=== PATIENT | female | born 1995 | race Caucasian/White ===

== ENCOUNTER 2016-12-17 19:58 | Emergency (ER) | payer SELFPAY ==
[~2016-12-17] VITALS: Ht 160 cm; Wt 63.2 kg
[2016-12-17 21:53] LABS: EOSINOPHIL (%) 1.3 % (0-5); EOSINOPHIL COUNT 0.1 K/uL (0-0.3); HEMATOCRIT 36.9 % (36.0-46.0); IMMATURE GRANULOCYTE (%) 0.1 % (0.0-0.7); IMMATURE GRANULOCYTE COUNT 0.1 K/uL; LYMPHOCYTE COUNT 3.1 K/uL (1.0-2.8); MCH 31.5 PG (29.0-34.0); MCHC 33.9 G/DL (30.0-36.0); MCV 92.9 FL (83-99); MEAN PLAT.VOLUME 10.5 uM^3 (9.5-12.4); MONOCYTE (%) 5.3 % (3-12); MONOCYTE COUNT 0.4 K/uL (0-0.8); NEUTROPHIL (%) 52.9 % (45-76); NEUTROPHIL COUNT 4.1 K/uL (1.8-6.4); PLATELET COUNT 249 K/uL (156-360); RBC DIS.WIDTH-CV 12.6 % (11.8-14.6); RBC DIS.WIDTH-SD 41.3 % (39-53); RED BLOOD COUNT 3.97 M/uL (3.80-5.20); WHITE BLOOD COUNT 7.7 K/uL (4.1-10.2)
[2016-12-17 22:03] LABS: CHLORIDE 108 mEq/L (99-109); POTASSIUM 3.5 mEq/L (3.7-5.4); SODIUM 140 mEq/L (136-147)
[2016-12-17 22:04] LABS: GLUCOSE 84 mg/dL (70-99)
[2016-12-17 22:06] LABS: ANION GAP 12 MEQ/L (2-14)
[2016-12-17 22:08] LABS: SERUM ETHYL ALCOHOL < 10 mg/dL
[2016-12-17 22:09] LABS: UREA NITROGEN (BUN) 10 mg/dL (9-23)
[2016-12-17 22:16] LABS: GFR ESTIMATE (CALCULATED) > 59 mL/min/; QUANTITATIVE HCG < 4.0 MIU/ML
[2016-12-17] MEDS ORDERED: ATARAX,VISTARIL50 MG PO (22:54)
[2016-12-17 23:07] VITALS: BP 117/82
== END 2016-12-17 23:09 | disposition home or self-care (01) ==
LOC: EME 19:58
PROVIDERS: Emergency Medicine
DX: F41.9 Anxiety disorder, unspecified (principal); F32.9 Major depressive disorder, single episode, unspecified
CPT/HCPCS: 80048; 81003; 84702; 85025; 90839; 99281; 99284; G0480